=== PATIENT | female | born 1940 | race American Indian/Alaskan Native ===

== ENCOUNTER 2017-03-18 13:00 | Emergency (ER) | payer MEDICARE ==
--- NOTE | 2017-03-18 13:09 | Emergency Department Report ---
Stated Complaint: LOW BLOOD PRESSURE Time Seen by Provider: 03/18/17 13:05 - HPI History of Present Illness: PT was brought into ED by family after her BP was found to be low in neurologist (Higinio) office. PT has a hx of Parkinsons and vertigo. PT's son states that his sister was taking care of Che for a month. He states that when he saw her yesterday, she had generalized weakness. - ROS Review of Systems: + shoulder pain ("my shoulder always hurts") + tremor - Exam Physical Exam: pt is alert LUE tremor noted MSE screening note: Focused history and physical exam performed. Due to findings the following was ordered: ekg, labs ED Disposition for MSE Condition: Stable
[2017-03-18] MEDS ORDERED: NACL 0.9% 1000 ML 1,000 ML IV ONE (13:53)
--- NOTE | 2017-03-18 13:56 | XRay Report ---
AP CHEST: HISTORY: Lightheadedness, dizziness AP view of the chest demonstrates a normal mediastinal and cardiac contour with clear lungs and normal bony and soft tissue structures. IMPRESSION: Unremarkable AP chest.
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
[2017-03-18 14:03] LABS: Bacteria,Urine 2+ /HPF (Negative); Bilirubin,Urine NEG (Negative); Blood,Urine NEG (Negative); Ketones,Urine TR mg/dL (Negative); Leukocyte Esterase,Urine SM (Negative); Mucus,Urine 3+ /HPF; Nitrite,Urine NEG (Negative)
--- NOTE | 2017-03-18 14:20 | Cat Scan Report ---
CT HEAD WITHOUT CONTRAST: HISTORY: Head injury. TECHNIQUE: Sequential CT images without contrast. FINDINGS: Images obtained show bilateral prominence of the sulci and ventricles. There are no abnormal intra- or extra-axial blood or fluid collections. There are no focal masses or evidence of mass effect. The adan white matter differentiation appears within normal limits. Regions of periventricular decreased attenuation are consistent with microangiopathic ischemic disease. The posterior fossa structures including the fourth ventricle, cerebellum, and brainstem appear normal. The right frontal sinus and anterior right ethmoid air cells are opacified. The remaining sinuses and mastoid air cells are clear. IMPRESSION: Evidence of atrophy and microangiopathic ischemic disease. No acute intracranial process noted.
[2017-03-18 14:27] LABS: Basophils % (Auto) 0.6 % (0.0-1.8); Eosinophils % (Auto) 1.4 % (0.0-4.3); Hematocrit 34.5 % (30.3-42.9); Mean Corpuscular HGB Conc 32 % (30-34); Mean Corpuscular Hemoglobin 27 pg (28-32); Mean Corpuscular Volume 85 fl (79-97); Platelet Count 224 K/mm3 (140-440); Red Blood Count 4.06 M/mm3 (3.65-5.03); Red Cell Distribution Width 14.3 % (13.2-15.2); White Blood Count 7.4 K/mm3 (4.5-11.0)
[2017-03-18 14:39] LABS: Alanine Aminotransferase 6 units/L (7-56); Albumin 3.9 g/dL (3.9-5); Albumin/Globulin Ratio 1.6 %; Alkaline Phosphatase 35 units/L (35-129); Anion Gap 16 mmol/L; BUN/Creatinine Ratio 21.25; Blood Urea Nitrogen 17 mg/dL (7-17); Calcium 9.2 mg/dL (8.4-10.2); Carbon Dioxide 29 mmol/L (22-30); Creatine Kinase 103 units/L (30-135); Glucose 90 mg/dL (65-100); Potassium 3.5 mmol/L (3.6-5.0); Sodium 146 mmol/L (137-145); Total Protein 6.3 g/dL (6.3-8.2)
[2017-03-18] MEDS ORDERED: ROCEPHIN/NS 1 GM/50 ML 1 GM/50 ML BAG IV ONE (15:16)
[2017-03-18 16:11] VITALS: BP 135/77
== END 2017-03-18 16:12 | disposition home or self-care (01) ==
LOC: ED 13:00
DX: S09.90XA Unspecified injury of head, initial encounter (principal); N39.0 Urinary tract infection, site not specified; R53.1 Weakness; G20 Parkinson's disease; W20.8XXA Other cause of strike by thrown, projected or falling object, initial encounter; Y93.89 Activity, other specified; Y92.89 Other specified places as the place of occurrence of the external cause; Y99.8 Other external cause status
CPT/HCPCS: 36415; 51701; 70450; 71010; 80053; 81001; 82550; 83735; 84484; 85025; 96361; 96365; 99285; J0696; J7030